=== PATIENT | male | born 1995 | race Caucasian/White ===

== ENCOUNTER 2017-02-04 12:01 | Emergency (ER) | payer SELFPAY ==
[~2017-02-04] VITALS: Ht 157.5 cm; Wt 86.0 kg
[2017-02-04 12:03] VITALS: Ht 157.5 cm; Wt 86.0 kg
--- NOTE | 2017-02-04 14:48 | ERD ---
ER Documentation Chief Complaint Date/Time DATE: 02/04/17 TIME: 14:44 Chief Complaint Complains of being unable to urinate since last night HPI This is a 21-year-old male presenting to the emergency department complaining of difficulty urinating for the past 4 months. He describes it as peeing a little bit every hour, denies any pain, fevers. Denies hematuria, pelvic or abdominal pain. Patient states that he was evaluated at another facility about 4 months ago and was told to follow-up with a urologist. Patient states that he followed up with his primary care physician today who has given him a referral but it will take up to 2 weeks for an appointment. ROS All systems reviewed and are negative except as per history of present illness. Allergies Allergies: Coded Allergies: No Known Allergy (Unverified , 02/04/17) Physical Exam Vitals Vital Signs Date Time Temp Pulse Resp B/P Pulse Ox O2 Delivery O2 Flow Rate FiO2 02/04/17 12:03 98.3 87 20 162/85 100 Physical Exam Const: WDWN, NAD Head: Atraumatic Eyes: Normal Conjunctiva ENT: Normal External Ears, Nose and Mouth. Neck: Full range of motion..~ No meningismus. Resp: Clear to auscultation bilaterally Cardio: Regular rate and rhythm, no murmurs Abd: Soft, non tender, non distended. Normal bowel sounds Skin: No petechiae or rashes Back: No midline or flank tenderness Ext: No cyanosis, or edema Neur: Awake and alert Psych: Normal Mood and Affect Procedures/MDM This is a 21-year-old male presenting to the emergency department with difficulty urinating for four months, which is likely neurogenic bladder due to history. Patient denies urinary retention. I have discussed with patient that we will need to get a urine sample and he refused and stated he will wait to see a urologist. I have discussed complications and risk of , patient signed against medical advice Departure Diagnosis: Primary Impression: Neurogenic bladder Condition: Stable Patient Instructions: When Your Child Has Neurogenic Bladder , [place] Form- 1, Urinary Retention, Male Additional Instructions: I have explained the complications and risks of , patient wants to be signed against medical advise FOLLOW UP WITH YOUR PRIMARY CARE PHYSICIAN TOMORROW.Return to this facility if you are not improving as expected. ELVA MCCONNELL PA-C Feb 04, 2017 14:47
== END 2017-02-04 14:10 | disposition left against medical advice (07) ==
LOC: FTE 12:01
DX: N31.9 Neuromuscular dysfunction of bladder, unspecified (principal)
CPT/HCPCS: 99282